=== PATIENT | female | born 1985 | race Two or more races ===

== ENCOUNTER 2023-04-28 15:23 | Emergency (ER) | payer OTHER ==
[~2023-04-28] VITALS: Ht 172.7 cm; Wt 67.9 kg
[2023-04-28] MEDS ORDERED: TETRACAINE HCL 0.5% OPTH(EYE) SOLN 4ML EACHEYE ONE (16:15)
[2023-04-28] MEDS ORDERED: ACET500T58 PO (16:33)
[2023-04-28] MEDS ORDERED: IBUP-1454 PO (16:33)
[2023-04-28] MEDS ORDERED: AZIT4SOL EACHEYE (16:33)
[2023-04-28 17:59] VITALS: BP 124/63; PULSE 74; RESP 18; TEMP 98.6; O2SAT 96
== END 2023-04-28 18:03 | disposition home or self-care (01) ==
LOC: ER 15:23
DX: H57.11 Ocular pain, right eye (principal); T65.891A Toxic effect of other specified substances, accidental (unintentional), initial encounter; Y92.89 Other specified places as the place of occurrence of the external cause